=== PATIENT | female | born 1980 | race African-American/Black ===

== ENCOUNTER → 2018-01-30 | Outpatient (REF) | payer OTHER ==
[2018-01-30 20:03] LABS: FERRITIN 50 NG/ML (8-252); IRON (FE) 65 UG/DL (50-170); PERCENT SATURATION 22.3 % (13.2-45.0); TOTAL IRON BINDING CAPACITY 292 UG/DL (250-450)
== END ==
LOC: M LAB REF 17:35
DX: N63.24 Unspecified lump in the left breast, lower inner quadrant (principal)
CPT/HCPCS: 83550

== ENCOUNTER → 2018-02-05 | Outpatient (CLI) | payer OTHER | LOC: M RAD 11:24 | DX: C50.919 Malignant neoplasm of unspecified site of unspecified female breast (principal) | CPT/HCPCS: 78306 ==

== ENCOUNTER → 2018-02-07 | Outpatient (CLI) | payer OTHER | LOC: M CARPUL 11:46 | DX: C50.919 Malignant neoplasm of unspecified site of unspecified female breast (principal) | CPT/HCPCS: 93306 ==

== ENCOUNTER 2018-02-15 19:18 | Emergency (ER) | payer OTHER ==
[2018-02-15] MEDS ORDERED: ISOVUE-370 76% 100ML VIAL (Q9967) As Ordered (20:46)
[2018-02-15 21:26] LABS: CK-MB VALUE MASS < 1.0 NG/ML (<3.6); CPK CREATINE PHOSPHOKINASE 159 U/L (26-192); MB/CK RELATIVE INDEX 0.63 (< OR =4); TROPONIN I < 0.02 NG/ML (< 0.10)
[2018-02-15] MEDS: ONDANSETRON 4MG/2ML VIAL (J2405) IV (22:15)
== END 2018-02-15 22:20 | disposition home or self-care (01) ==
LOC: M ED 19:18
DX: R07.89 Other chest pain (principal); C50.919 Malignant neoplasm of unspecified site of unspecified female breast; Z79.899 Other long term (current) drug therapy
CPT/HCPCS: J2405

== ENCOUNTER → 2018-02-15 | Outpatient (CLI) | payer OTHER | LOC: M EKG 14:19 | DX: R07.9 Chest pain, unspecified (principal) | CPT/HCPCS: 93005 ==

== ENCOUNTER → 2018-03-15 | Outpatient (CLI) | payer OTHER | LOC: M EKG 14:45 | DX: R07.9 Chest pain, unspecified (principal) | CPT/HCPCS: 93005 ==

== ENCOUNTER → 2018-03-22 | Outpatient (CLI) | payer OTHER ==
[~2018-03-22] MED LIST: GASTROGRAFIN SOLUTION 30ML (Q9963) As Ordered; ISOVUE-370 76% 100ML VIAL (Q9967) As Ordered
== END ==
LOC: M RAD 16:43
DX: R07.9 Chest pain, unspecified (principal); C50.919 Malignant neoplasm of unspecified site of unspecified female breast
CPT/HCPCS: Q9963

== ENCOUNTER → 2018-04-19 | Outpatient (CLI) | payer OTHER ==
[~2018-04-19] MED LIST changes: -GASTROGRAFIN SOLUTION 30ML (Q9963) As Ordered; -ISOVUE-370 76% 100ML VIAL (Q9967) As Ordered; +PROHANCE 279.3MG/ML 15ML VIAL (A9576) As Ordered
== END ==
LOC: M RAD 08:50
DX: R51 Headache (principal); C50.919 Malignant neoplasm of unspecified site of unspecified female breast
CPT/HCPCS: A9576